=== PATIENT | female | born 1995 | race Caucasian/White ===

== ENCOUNTER 2016-12-30 14:01 | Emergency (ER) ==
[~2016-12-30] VITALS: Ht 154.9 cm; Wt 56.0 kg
[2016-12-30 14:06] VITALS: BP 143/96; PULSE 70; TEMP 36.8; O2SAT 97; Ht 154.9 cm; Wt 56.0 kg
--- NOTE | 2016-12-30 16:02 | EMERGENCY ROOM VISIT NOTE ---
ED Visit Note First contact with patient: 15:55 The patient was assigned a room, but when I went to evaluate the patient, the nurse reported that the patient could not be found in the waiting room.
== END 2016-12-30 15:38 | disposition left against medical advice (07) ==
LOC: C.EDB 14:05 → C.EDC 15:38
DX: J02.9 Acute pharyngitis, unspecified (principal)